=== PATIENT | male | born 2000 | race African-American/Black ===

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

== ENCOUNTER 2021-10-29 06:45 | Emergency (ER) | payer SELFPAY ==
[~2021-10-29] VITALS: Ht 193 cm; Wt 95.3 kg
[2021-10-29] MEDS ORDERED: IBUPROFEN600 MG PO (06:57)
[2021-10-29] MEDS ORDERED: DEXAMETHASONE SOD PHOS 10 MG/1 ML VIAL IV ONE (08:00)
== END 2021-10-29 08:27 | disposition home or self-care (01) ==
LOC: ER 06:48
DX: J06.9 Acute upper respiratory infection, unspecified (principal); J02.8 Acute pharyngitis due to other specified organisms
CPT/HCPCS: 83518; 87070; 99283